=== PATIENT | male | born 1955 | race Caucasian/White ===

== ENCOUNTER 2021-12-28 01:33 | Emergency (ER) | payer BC, MEDICARE ==
[~2021-12-28] VITALS: Ht 172.7 cm; Wt 79.4 kg
[2021-12-28] MEDS ORDERED: predniSONE 20 MG TABLET ONE (01:59)
[2021-12-28] MEDS ORDERED: IPRATROPIUM NEB FS 0.5 MG/2.5 ML AMPUL.NEB NEB ONE (02:00)
[2021-12-28] MEDS ORDERED: predniSONE 20 MG TABLET PO ONE (02:00)
[2021-12-28] MEDS ORDERED: ALBUTEROL FS 2.5 MG/3 ML VIAL.NEB NEB ONE (02:00)
--- NOTE | 2021-12-28 02:00 | NUR ---
BIBS C/O SOB X2 DAYS AT TRIAGE O2 SAT: 98% ON RA. REPORT USING INHALER [employer] WITHOUT RELIEF. WHEEZES AUSCULTATED BILATERALLY, EVEN AT 20RR. AMBULATORY WITH STEADY GAIT ASSISTED TO ER BED 7 AND PLACED ON PULSE OX.
--- NOTE | 2021-12-28 02:03 | NUR ---
EMT AT BEDSIDE FOR EKG
[2021-12-28 02:23] LABS: BASOPHILS # (AUTO) 0.1 K/uL (0.0-0.2); BASOPHILS % (AUTO) 0.9 % (0.0-2.0); EOSINOPHILS % (AUTO) 12.1 % (0.0-6.0); HEMATOCRIT 50 % (39-51); HEMOGLOBIN 16.9 g/dL (13.5-17.5); LYMPHOCYTES # (AUTO) 1.1 K/uL (0.8-4.8); MEAN CORPUSCULAR HGB CONC 34 g/dl (31.0-36.0); MEAN CORPUSCULAR VOLUME 92 fL (80-96); MONOCYTES # (AUTO) 0.9 K/uL (0.1-1.30); MONOCYTES % (AUTO) 11.8 % (2.0-12.0); NEUTROPHILS # (AUTO) 4.6 K/uL (1.8-8.9); NEUTROPHILS % (AUTO) 61.2 % (43.0-81.0); PLATELET COUNT (AUTO) 344 K/uL (150-450); RED BLOOD CELL COUNT(AUTO) 5.42 MIL/uL (4.5-6.0); WHITE BLOOD COUNT (AUTO) 7.6 K/uL (4.3-11.0)
[2021-12-28 02:32] LABS: CARBON DIOXIDE 30 mmol/L (21-32); CHLORIDE 107 mmol/L (98-107); GLUCOSE 94 mg/dL (74-106); POTASSIUM 4.5 mmol/L (3.5-5.1); SODIUM SERUM 142 mmol/L (136-145); UREA NITROGEN, BLOOD 16 mg/dL (7-18)
--- NOTE | 2021-12-28 02:41 | NUR ---
RT CALLED FOR BREATHING TX
--- NOTE | 2021-12-28 03:00 | NUR ---
RT repaged for breathing treatment
--- NOTE | 2021-12-28 03:02 | NUR ---
RT AT BEDSIDE
--- NOTE | 2021-12-28 03:02 | NUR ---
RT AT PT'S BEDSIDE FOR BREATHING TX
[2021-12-28] MEDS ORDERED: ALBUTEROL FS 2.5 MG/3 ML VIAL.NEB ONE (03:06)
[2021-12-28] MEDS ORDERED: IPRATROPIUM NEB FS 0.5 MG/2.5 ML AMPUL.NEB ONE (03:06)
[2021-12-28] MEDS ORDERED: PRED20TA GT (03:51)
[2021-12-28] MEDS ORDERED: LEVA15HF6 IH (03:51)
--- NOTE | 2021-12-28 04:12 | NUR ---
Patient discharged to home in stable condition. Written and verbal after care instructions given. Patient verbalizes understanding of instruction.
[2021-12-28 04:19] VITALS: BP 143/81
== END 2021-12-28 04:15 | disposition home or self-care (01) ==
LOC: ER 01:35
DX: J40 Bronchitis, not specified as acute or chronic (principal); I10 Essential (primary) hypertension
CPT/HCPCS: 36415; 71045; 80048; 84484; 85025; 93005; 94644; 99285; J7512